=== PATIENT | male | born 1990 | race Caucasian/White ===

== ENCOUNTER 2020-12-28 09:46 | Day surgery (SDC) | payer OTHER ==
[~2020-12-28] VITALS: Ht 172.7 cm; Wt 80.0 kg
[~2020-12-28 09:46] MED LIST: RINGERS SOLUTION,LACTATED 1,000 ML IV ONE
[2020-12-28] MEDS ORDERED: PROPOFOL 1% 20 ML VIAL IVP ONE (09:47)
[2020-12-28] MEDS ORDERED: KETOROLAC TROMETHAMINE 60 MG/2 ML VIAL IM ONE (09:47)
[2020-12-28] MEDS ORDERED: ONDANSETRON HCL 4 MG/2 ML VIAL IVP ONE (09:47)
[2020-12-28] MEDS ORDERED: SODIUM CL IRRIG SOLN BAG 12,000 ML IRRIG ONE (09:59)
[2020-12-28 10:20] LABS: COVID AG,FIA SOURCE NASOPHARYNGEAL
[2020-12-28] MEDS ORDERED: RINGERS SOLUTION,LACTATED 1,000 ML IV ONE (10:30)
[2020-12-28 10:42] LABS: EOSINOPHILS % (AUTO) 3.2 % (1.0-6.0); HEMOGLOBIN 15.1 g/dL (13.5-17.5); LYMPHOCYTES # (AUTO) 2.1 K/uL (1.0-4.8); LYMPHOCYTES % (AUTO) 38.6 % (22.0-44.0); MEAN CORPUSCULAR HEMOGLOBIN 31.8 pg (26.0-34.0); MEAN CORPUSCULAR HGB CONC 34.3 G/dL (31.0-37.0); MEAN CORPUSCULAR VOLUME 93 fL (80-100); MONOCYTES # (AUTO) 0.4 K/uL (0.1-1.0); MONOCYTES % (AUTO) 7.9 % (2.0-9.0); NEUTROPHILS # (AUTO) 2.7 K/uL (1.8-7.7); NEUTROPHILS % (AUTO) 49.3 % (40.0-70.0); PLATELET COUNT (AUTO) 271 K/uL (150-450); RED BLOOD CELL COUNT(AUTO) 4.75 MIL/uL (4.50-5.90); RED CELL DISTRIBUTION WIDTH 12.8 % (11.5-14.5)
[2020-12-28 10:55] LABS: ANION GAP 6 mmol/L (8-16); CALCIUM, TOTAL 8.7 mg/dL (8.8-10.5); CARBON DIOXIDE 32 mmol/L (22-29); CHLORIDE 104 mmol/L (98-107); CREATININE 0.85 mg/dL (0.60-1.30); GLOMERULAR FILTR. RATE CALC > 60 mL/min (>60); GLUCOSE,RANDOM 91 mg/dL (70-110); POTASSIUM 4.3 mmol/L (3.5-5.1); SODIUM SERUM 142 mmol/L (136-145); UREA NITROGEN, BLOOD 17 mg/dL (7-18)
[2020-12-28 10:56] LABS: INR 1.1 (0.9-1.1); PROTHROMBIN TIME 11.6 SEC (9.4-11.6)
[2020-12-28] MEDS ORDERED: BUPIVACAINE LIPOSOME/PF 1.3%-13.3MG/ML SUSPENSION 20 ML VIAL INJ ONE (11:30)
[2020-12-28] MEDS ORDERED: BUPIVACAINE HCL/PF 0.25% 30 ML VIAL ONE (11:59)
[2020-12-28] MEDS ORDERED: MUPIROCIN CALCIUM 2% 22 GM OINTMENT ONE (11:59)
[2020-12-28] MEDS ORDERED: EPINEPHrine 1:1,000 [1 MG/ML] AMP ONE (11:59)
[2020-12-28] MEDS ORDERED: MIDAZOLAM HCL 2 MG/2 ML VIAL IVP ONE (12:00)
[2020-12-28] MEDS ORDERED: FentaNYL CITRATE PF 100 MCG/2 ML VIAL IVP ONE (12:00)
[2020-12-28] MEDS ORDERED: BUPIVACAINE 0.25%/EPI 1:200,000/PF 10 ML VIAL ONE (13:16)
== END 2020-12-28 15:00 | disposition home or self-care (01) ==
LOC: SURGERY 09:46
PROVIDERS: ATTEND Orthopaedic Surgery
DX: M65.861 Other synovitis and tenosynovitis, right lower leg (principal); M25.861 Other specified joint disorders, right knee; G89.18 Other acute postprocedural pain; Z79.899 Other long term (current) drug therapy; Z72.89 Other problems related to lifestyle; Z98.890 Other specified postprocedural states; Z79.01 Long term (current) use of anticoagulants
CPT/HCPCS: 29876; 36415; 80048; 85025; 85610; 85730; 87426; C9290; C9803; J0171; J1885; J2250; J2405; J2704; J3010; J3490; J7120